=== PATIENT | male | born 1985 | race Caucasian/White ===

== ENCOUNTER 2020-09-13 12:10 | Inpatient (IN) | payer OTHER ==
[~2020-09-13] VITALS: Ht 180.3 cm; Wt 82.5 kg
[~2020-09-13 12:10] MED LIST: ZOFRAN4 MG PO
[2020-09-13 12:14] VITALS: BP 137/91
[2020-09-13 12:36] LABS: ABSOLUTE BASOPHILS 0.1 thou/uL (0.0-0.2); ABSOLUTE EOSINOPHILS 0.2 thou/uL (0.0-0.7); ABSOLUTE LYMPHOCYTES 2.6 thou/uL (0.8-5.3); ABSOLUTE MONOCYTES 0.8 thou/uL (0.0-1.2); ABSOLUTE NEUTROPHILS 5.5 thou/uL (1.6-8.1); BASOPHILS 1.2 %; EOSINOPHILS 1.9 %; HEMATOCRIT 45.5 % (42.0-52.0); HEMOGLOBIN 15.8 gm/dL (14.0-18.0); LYMPHOCYTES 28.7 %; MCH 34.6 pg (26.0-34.0); MCHC 34.6 g/dL (28.0-37.0); MONOCYTES 8.9 %; MPV 7.6 fl. (7.2-11.1); NUCLEATED RBCS 0 /100WBC; PLATELET COUNT* 166 thou/uL (150-400); POLYS 59.3 %; RBC 4.56 mil/uL (4.50-6.00); RDW-CV 13.5 % (10.5-14.5); WBC 9.2 thou/uL (4.0-11.0)
[2020-09-13 12:40] LABS: CALCIUM 9.6 mg/dL (8.5-10.1); POTASSIUM 3.5 mmol/L (3.5-5.1)
[2020-09-13 12:45] LABS: TOTAL BILIRUBIN 0.8 mg/dL (<0.1-1.0); TOTAL PROTEIN 7.6 g/dL (6.4-8.2)
[2020-09-13 12:56] LABS: APTT 21.6 Seconds (25.0-31.3); PROTIME 10.6 Seconds (9.20-11.50)
[2020-09-13 14:52] LABS: URINE BILIRUBIN NEGATIVE (Negative); URINE BLOOD NEGATIVE (Negative); URINE CLARITY CLEAR; URINE COLOR YELLOW; URINE GLUCOSE-RANDOM NEGATIVE (Negative); URINE KETONES NEGATIVE (Negative); URINE LEUKOCYTES NEGATIVE (Negative); URINE NITRITE NEGATIVE (Negative); URINE PROTEIN NEGATIVE (Negative); URINE UROBILINOGEN 0.2 E.U./dl (0.2-1.0)
[2020-09-13 15:00] LABS: AMP/METHAMP Negative (Negative); BARBITURATES Negative (Negative); BENZODIAZEPINES Negative (Negative); COCAINE Negative (Negative); METHADONE Negative (Negative); OPIATES Negative (Negative); PCP Negative (Negative); THC POSITIVE (Negative)
[2020-09-13 17:41] VITALS: BP 141/93
[2020-09-13 20:00] VITALS: BP 148/97
[2020-09-14] VITALS (7 sets, daily range): BP systolic 131–163; BP diastolic 78–114
[2020-09-14 04:46] LABS: HEMATOCRIT 43.2 % (42.0-52.0); HEMOGLOBIN 14.8 gm/dL (14.0-18.0); MCH 34.6 pg (26.0-34.0); MCHC 34.3 g/dL (28.0-37.0); MCV 100.8 fL (80.0-100.0); MPV 8.5 fl. (7.2-11.1); RBC 4.29 mil/uL (4.50-6.00); RDW-CV 13.4 % (10.5-14.5)
[2020-09-14 05:11] LABS: CALCIUM 8.2 mg/dL (8.5-10.1); POTASSIUM 3.6 mmol/L (3.5-5.1)
[2020-09-14 05:15] LABS: ALBUMIN 3.5 g/dL (3.4-5.0); TOTAL BILIRUBIN 1.3 mg/dL (<0.1-1.0); TOTAL PROTEIN 6.8 g/dL (6.4-8.2)
--- NOTE | 2020-09-14 17:04 | EKG ---
[place] [address] ELECTROCARDIOGRAM REPORT Name: KEY NASCIMENTO Room: [address] ADM IN M.R.#: [id number] Admission: 09/13/20 Attend Phys: Rebeca Bedoya, Discharge: Date of : 89 Date of Service: 09/13/20 1213 Report #: [id number] THIS REPORT FOR: //name// [facility] ED Test Date: 2020-09-13 Test Time: 12:13:33 Pat Name: KEY NASCIMENTO Department: Room: [facility] Gender: M [employer] Manager: DIANE : 1985 Requested By: Lorenza Hartmann Order Number: [id number] MD: Amaruy Muhammad Measurements Intervals [place] Rate: 72 P: 76 NE: 166 QRS: 50 QRSD: 117 T: 32 QT: 421 QTc: 461 Interpretive Statements Sinus arrhythmia Nonspecific intraventricular conduction delay Nonspecific T abnormalities, diffuse leads; consider ischemia Baseline wander in lead(s) V5 No previous ECG available for comparison Electronically Signed On 09-14-2020 17:04:21 PASTRY MIXER by Amaury Muhammad [email or web address] <ELECTRONICALLY SIGNED> By: Amaury Muhammad MD, [facility] 09/14/20 1704 1213 1213 Amaury Muhammad MD, [facility] /EPI
[2020-09-15] VITALS: BP 149/91
[2020-09-15 04:00] VITALS: BP 129/83
[2020-09-15 04:41] LABS: HEMATOCRIT 40.9 % (42.0-52.0); HEMOGLOBIN 13.9 gm/dL (14.0-18.0); MCH 34.2 pg (26.0-34.0); MCV 100.7 fL (80.0-100.0); NUCLEATED RBCS 0 /100WBC; PLATELET COUNT* 92 thou/uL (150-400); RBC 4.06 mil/uL (4.50-6.00); RDW-CV 13.6 % (10.5-14.5); WBC 16.2 thou/uL (4.0-11.0)
[2020-09-15 05:18] LABS: ALBUMIN 2.9 g/dL (3.4-5.0); ALKALINE PHOSPHATASE 64 U/L (46-116); ANION GAP 10 mmol/L (7-16); CALCIUM 8.1 mg/dL (8.5-10.1); CHLORIDE 101 mmol/L (98-107); CHOLESTEROL 128 mg/dL (<200); CO2 27 mmol/L (21-32); CREATININE 1.1 mg/dL (0.6-1.3); GLUCOSE 81 mg/dL (70-99); HDL CHOLESTEROL 42 mg/dL (>40); LDL CHOLESTEROL 63 mg/dL (<100); LIPASE 3290 U/L (73-393); POTASSIUM 3.5 mmol/L (3.5-5.1); SGOT 53 U/L (15-37); SGPT 30 U/L (30-65); SODIUM 138 mmol/L (136-145); TOTAL BILIRUBIN 1.2 mg/dL (<0.1-1.0); TOTAL PROTEIN 6.1 g/dL (6.4-8.2); TRIGLYCERIDE 118 mg/dL (<150); VLDL 24 mg/dL (<40)
[2020-09-15 05:44] LABS: BUN 10 mg/dL (7-18)
[2020-09-15 06:52] LABS: SERUM ASSESSMENT Clear
[2020-09-15 07:03] LABS: ABSOLUTE LYMPHOCYTES 1.3 thou/uL (0.8-5.3); ABSOLUTE MONOCYTES 1.8 thou/uL (0.0-1.2); ABSOLUTE NEUTROPHILS 13.1 thou/uL (1.6-8.1)
[2020-09-15 07:04] LABS: ANISOCYTOSIS 1+; PLATELET ESTIMATE DECREASED; POIKILOCYTOSIS 1+
[2020-09-15 08:00] VITALS: BP 132/86
[2020-09-15 12:00] VITALS: BP 136/96
[2020-09-15 20:00] VITALS: BP 144/96
[2020-09-16 00:11] VITALS: BP 122/75
[2020-09-16 04:31] LABS: ABSOLUTE LYMPHOCYTES 0.9 thou/uL (0.8-5.3); BASOPHILS 0.3 %; EOSINOPHILS 0.2 %; HEMATOCRIT 38.9 % (42.0-52.0); HEMOGLOBIN 13.2 gm/dL (14.0-18.0); LYMPHOCYTES 7.6 %; MCH 34.4 pg (26.0-34.0); MCHC 33.9 g/dL (28.0-37.0); MCV 101.7 fL (80.0-100.0); MONOCYTES 8.5 %; MPV 9.3 fl. (7.2-11.1); NUCLEATED RBCS 0 /100WBC; PLATELET COUNT* 90 thou/uL (150-400); POLYS 83.4 %; RBC 3.83 mil/uL (4.50-6.00); RDW-CV 13.2 % (10.5-14.5)
[2020-09-16 04:52] LABS: ALBUMIN 2.5 g/dL (3.4-5.0); CALCIUM 8.1 mg/dL (8.5-10.1); CREATININE 0.9 mg/dL (0.6-1.3); POTASSIUM 3.6 mmol/L (3.5-5.1); TOTAL BILIRUBIN 1.1 mg/dL (<0.1-1.0); TOTAL PROTEIN 5.3 g/dL (6.4-8.2)
[2020-09-16 08:00] VITALS: BP 145/95
[2020-09-16] MEDS ORDERED: OXYCODONE HCL10 MG PO (09:47)
[2020-09-16] MEDS ORDERED: FOLIC ACID1 MG PO (09:47)
[2020-09-16] MEDS ORDERED: VITAMIN B-1100 M2 PO (09:47)
[2020-09-16 10:25] VITALS: BP 145/95
[2020-09-16 11:35] VITALS: BP 145/95
== END 2020-09-16 10:50 | disposition home or self-care (01) | DRG 440 ==
LOC: M.ERS 12:10 → M.TBA-ER 14:53 → M.2W 17:13
PROVIDERS: Internal Medicine; Physician Assistant; ADMIT Internal Medicine; ATTEND Internal Medicine
DX: K85.20 Alcohol induced acute pancreatitis without necrosis or infection (principal); I10 Essential (primary) hypertension; F12.90 Cannabis use, unspecified, uncomplicated; F10.20 Alcohol dependence, uncomplicated; F17.210 Nicotine dependence, cigarettes, uncomplicated; Z20.822 Contact with and (suspected) exposure to COVID-19; Z79.899 Other long term (current) drug therapy; Z28.21 Immunization not carried out because of patient refusal